=== PATIENT | male | born 1965 | race African-American/Black ===

== ENCOUNTER 2023-10-12 12:01 | Inpatient (IN) | payer OTHER ==
[2023-10-12 15:16] VITALS: BMI 21.9
[2023-10-12] MEDS ORDERED: ONDANSETRON *ODT* 4 MG TABLET SL PRN (15:24)
[2023-10-12] MEDS ORDERED: LOPERAMIDE HCL 2 MG CAPSULE PO PRN (15:24)
[2023-10-12] MEDS ORDERED: DICYCLOMINE HCL 10 MG CAPSULE PO PRN (15:24)
[2023-10-12] MEDS ORDERED: POLYETHYLENE GLYCOL (HEALTHYLAX) 3350 17 GM PACKET PO PRN (15:24)
[2023-10-12] MEDS ORDERED: P-EPHED 60MG/TRIPROLIDI 2.5MG TABLET PO PRN (15:24)
[2023-10-12] MEDS ORDERED: BENZOCAINE/MENTHOL (CHLORASEPTIC ) LOZENGE MM PRN (15:24)
[2023-10-12] MEDS ORDERED: ACETAMINOPHEN 325 MG TABLET (FP) PO PRN (15:24)
[2023-10-12] MEDS ORDERED: guaiFENesin 600 MG TABLET.ER (FP) PO PRN (15:24)
[2023-10-12] MEDS ORDERED: MAGNESIUM HYDROX 2400MG/30ML ORAL SUSPENSION 30 ML CUP PO PRN (15:24)
[2023-10-12] MEDS ORDERED: BENZONATATE 200 MG CAPSULE PO PRN (15:24)
[2023-10-12] MEDS: hydrOXYzine PAMOATE 25 MG CAPSULE (FP) PO PRN (18:30)
[2023-10-12] MEDS: MELATONIN 5 MG TABLETS PO SCH (22:27)
[2023-10-12] MEDS: AMOX TR/POT CLAV 875MG/125MG TABLETS (FP) PO SCH (22:27)
[2023-10-12] MEDS: THIAMINE 100 MG TABLET PO SCH (22:27)
[2023-10-12] MEDS: NICOTINE POLACRILEX 2 MG LOZENGE BC PRN (22:29)
[2023-10-13] MEDS ORDERED: chlordiazePOXIDE HCL 25 MG CAPSULE PO PRN (09:04)
[2023-10-13] MEDS: PRENATAL VITAMINS W/ FOLIC ACID TABLET (FP) PO SCH (09:20)
[2023-10-13] MEDS: IBUPROFEN 600 MG TABLET (FP) PO PRN (10:10)
[2023-10-13] MEDS: chlordiazePOXIDE HCL 25 MG CAPSULE PO SCH (10:10)
[2023-10-13 11:50] LABS: HEMATOCRIT 42.7 % (35.4-49); HEMOGLOBIN 14.6 GM/dL (11.7-16.9); MCH 30.5 pg (25.7-33.7); MCHC 34.2 g/dl (32.0-35.9); MEAN CELL VOLUME 89.2 fl (80-96); MEAN PLT VOLUME 8.4 fl (7.5-11.1); PLATELET COUNT 198 10^3/uL (134-434); RBC 4.79 M/mm3 (4.00-5.60); RDW 13.5 % (11.9-15.9); WHITE BLOOD COUNT 11.3 K/mm3 (4.0-10.0)
[2023-10-13 11:52] LABS: POTASSIUM 4.1 mmol/L (3.5-5.1)
[2023-10-13 11:55] LABS: CALCIUM 9.3 mg/dL (8.5-10.1)
[2023-10-13 11:56] LABS: ALBUMIN 3.3 g/dl (3.4-5.0); BLOOD UREA NITROGEN 11.8 mg/dL (7-18)
[2023-10-13 11:59] LABS: CREATININE 0.9 mg/dL (0.55-1.3)
[2023-10-13 12:00] LABS: BILIRUBIN,TOTAL 0.7 mg/dL (0.2-1)
[2023-10-13] MEDS: FLUTICASONE PROP 0.05% 16 GM NASAL SPRAY NS PRN (22:34)
[2023-10-14] MEDS: METHOCARBAMOL 500 MG TABLET PO PRN (10:20)
[2023-10-14] MEDS: PENICILLIN G BENZATHINE 2,400,000 UNIT/4 ML PFS IM ONE (11:43)
[2023-10-14] MEDS: IBUPROFEN 400 MG TABLET (FP) PO PRN (17:27)
[2023-10-15] MEDS: chlordiazePOXIDE HCL 25 MG CAPSULE PO SCH (05:35)
[2023-10-15] MEDS: NICOTINE POLACRILEX 2 MG GUM BUC PRN (12:33)
[2023-10-15] MEDS: MAG HYDROX/AL HYDROX/SIMETH 30 ML UNIT-DOSE CUP PO PRN (19:21)
[2023-10-15] MEDS: BISMUTH SUBSALICYLATE 524 MG/30 ML PO PRN (22:46)
[2023-10-16] MEDS ORDERED: chlordiazePOXIDE HCL 10 MG CAPSULE PO PRN
[2023-10-16] MEDS: chlordiazePOXIDE HCL 10 MG CAPSULE PO SCH (05:37)
[2023-10-16] MEDS ORDERED: MELATONIN 5 MG TABLETS PO SCH (09:02)
[2023-10-16] MEDS: NICOTINE 21 MG/24 HOURS TOPICAL PATCH TD SCH (09:47)
[2023-10-16] MEDS: LIDOCAINE 5% TOPICAL PATCH TP SCH (14:32)
[2023-10-16] MEDS: SUVOREXANT 10 MG TABLET PO PRN (22:13)
[2023-10-16] MEDS: LIDOCAINE PATCH REMOVAL MC SCH (22:18)
[2023-10-17] MEDS: chlordiazePOXIDE HCL 10 MG CAPSULE PO SCH (05:10)
[2023-10-17] MEDS: SUVOREXANT 15 MG TABLET PO PRN (22:19)
[2023-10-18] MEDS: chlordiazePOXIDE HCL 10 MG CAPSULE PO ONE (05:39)
[2023-10-18 06:01] VITALS: RESP 18
[2023-10-18 09:28] VITALS: BP 110/66; PULSE 83; TEMP 98.1
== END 2023-10-18 11:13 | disposition home or self-care (01) | DRG 775 ==
LOC: YASAS 12:01 → Y6N 16:27
PROVIDERS: ADMIT Allergy & Immunology; ATTEND Surgery
PROC: HZ2ZZZZ Detoxification Services for Substance Abuse Treatment (ICD-10-PCS; principal; 2023-10-12)
DX: F10.230 Alcohol dependence with withdrawal, uncomplicated (principal); F10.282 Alcohol dependence with alcohol-induced sleep disorder; F10.280 Alcohol dependence with alcohol-induced anxiety disorder; F17.210 Nicotine dependence, cigarettes, uncomplicated; M54.9 Dorsalgia, unspecified; G89.29 Other chronic pain; D72.829 Elevated white blood cell count, unspecified; S02.85XD Fracture of orbit, unspecified, subsequent encounter for fracture with routine healing; W19.XXXD Unspecified fall, subsequent encounter; Z86.19 Personal history of other infectious and parasitic diseases; Z56.0 Unemployment, unspecified
CPT/HCPCS: 36415; 80053; 80305; 85027; 86593; 86780; 93005; 93010